=== PATIENT | female | born 1990 | race Caucasian/White ===

== ENCOUNTER → 2021-03-29 09:19 | Outpatient (CLI) | payer OTHER, SELFPAY ==
--- NOTE | 2021-03-29 09:25 | XR_ITS ---
PROCEDURE: XR KNEE RT 3V CLINICAL INDICATION: RT KNEE PAIN COMPARISON: No exams were available for comparison FINDINGS: No fracture or dislocation. No lytic or blastic change. There is normal mineralization. The joint spaces are well-preserved. No significant degenerative/arthritic changes. No erosive changes evident. Other findings:None. IMPRESSION: No acute findings. Dictated by: Dr. Demar Tyson MD 03/29/2021 10:01 Dr. Demar Tyson MD in [place] 03/29/2021 10:01
== END ==
PROVIDERS: PCP Nurse Practitioner; Visit Provider Nurse Practitioner
DX: M25.569 Pain in unspecified knee (principal)
CPT/HCPCS: 73562

== ENCOUNTER → 2021-04-13 16:06 | Outpatient (CLI) | payer OTHER, SELFPAY ==
--- NOTE | 2021-04-13 16:13 | MR_ITS ---
PROCEDURE INFORMATION: Exam: MR Right Lower Extremity Joint Without Contrast, Knee Exam date and time: 04/13/2021 4:13 PM Age: 30 years old Clinical indication: Pain; Knee; Right; Additional info: Pain in unspecified knee. PT fell [id number] ago and has had knee pain since. Prior x-ray 03-29-21 TECHNIQUE: Imaging protocol: MR of the Right lower extremity joint without contrast. Exam focused on the knee. COMPARISON: CR XR KNEE RT 3V 03/29/2021 9:28 AM FINDINGS: Bones and cartilage: No fracture or suspicious marrow signal. Minimal chondromalacia lateral facet patella. Joint spaces: No joint effusion. Medial meniscus: No internal derangement. Lateral meniscus: Unremarkable. No tear. Anterior cruciate ligament: Unremarkable. No tear. Posterior cruciate ligament: Unremarkable. No tear. Medial capsule and supporting structures: Unremarkable. No tear. Lateral capsule and supporting structures: Unremarkable. No tear. Extensor mechanism of knee: Unremarkable. No tear. Muscles: Unremarkable. Soft tissues: Unremarkable. IMPRESSION: 1. No fracture or suspicious marrow signal. 2. No internal derangement. 3. Minimal chondromalacia lateral facet patella.
== END ==
PROVIDERS: PCP Nurse Practitioner; Visit Provider Nurse Practitioner
DX: M25.561 Pain in right knee (principal)
CPT/HCPCS: 73721

== ENCOUNTER → 2021-09-13 14:03 | Outpatient (CLI) | payer OTHER, SELFPAY ==
[2021-09-13 14:42] LABS: Hemoglobin A1C 5.4 % (4.0-6.0)
[2021-09-13 15:29] LABS: Free Thyroxine Index 2.8 ug/dL (5.93-13.13); T4 (Thyroxine) 8.8 ug/dl (5.53-11.0); Triiodothryronine (T3) Uptake 32 % (23.5-40.5)
[2021-09-13 15:43] LABS: Thyroid Stimulating Hormone 2.17 uIU/mL (0.465-4.68)
[2021-09-13 16:00] LABS: Vitamin B12 385 pg/mL (239-931)
[2021-09-13 23:18] LABS: Iron 29 ug/dL (37-170)
[2021-09-13 23:27] LABS: Total Iron Binding Capacity 335 ug/dL (265-497)
[2021-09-20 19:10] LABS: 1,25 Dihydroxy Vitamin D 56 pg/mL (.); 1,25-Dihydroxy, Vitamin D-2 <10 pg/mL (.); 1,25-Dihydroxy, Vitamin D-3 55 pg/mL (.)
== END ==
PROVIDERS: Visit Provider Nurse Practitioner Psychiatric/Mental Health
DX: Z79.899 Other long term (current) drug therapy (principal)
CPT/HCPCS: 36415; 82607; 82652; 83036; 83540; 83550; 84436; 84443; 84479

== ENCOUNTER → 2022-02-27 12:58 | Outpatient (CLI) | payer OTHER, SELFPAY ==
[2022-02-27 13:24] LABS: Basophils # 0.2 K/mm3 (0-0.2); Basophils % 1.4 % (0.1-2.0); Eosinophils # 0.1 K/mm3 (0.0-0.4); Eosinophils % 1.1 % (0.1-12.0); Hematocrit 40.2 % (37.0-47.0); Hemoglobin 13.4 g/dL (12.2-16.2); Lymphocytes # 2.9 K/mm3 (0.7-4.5); Lymphocytes % 22.4 % (10-50); Mean Corpuscular HGB Conc 33.2 g/dL (31.8-35.4); Mean Corpuscular Volume 90.2 fl (81-99); Mean Platelet Volume 8.7 fl (7.4-10.4); Monocytes # 0.6 K/mm3 (0.1-1.0); Monocytes % 4.4 % (1.7-9.3); Neutrophils # 9.2 K/mm3 (1.8-7.8); Neutrophils % 70.7 % (37.0-80.0); Platelet Count 463 K/mm3 (142-424); Red Blood Count 4.45 M/mm3 (4.20-5.40); White Blood Count 13.1 K/mm3 (4.8-10.8)
[2022-02-27 14:31] LABS: HCG Qualitative, Serum Negative (Negative)
[2022-02-27 14:35] LABS: Anion Gap 12.2 mEq/L (5-15); Blood Urea Nitrogen 12 mg/dl (7-17); Calcium 9.3 mg/dl (8.4-10.2); Carbon Dioxide 28 mmol/L (22.0-30.0); Chloride 103 mmol/L (98-107); Estimated Glomerular Filt Rate 98 ml/min (>60); GFR (African American) 119 ML/MIN (>60); Glucose 92 mg/dl (74-100); Potassium 4.2 mmoL/L (3.5-5.1); Sodium 139 mmol/L (136-145)
== END ==
PROVIDERS: Visit Provider Surgery
DX: Z01.812 Encounter for preprocedural laboratory examination (principal); Z20.822 Contact with and (suspected) exposure to COVID-19; L72.9 Follicular cyst of the skin and subcutaneous tissue, unspecified
CPT/HCPCS: 36415; 80048; 84703; 85025; C9803; U0003; U0005

== ENCOUNTER 2022-03-01 10:32 | Day surgery (SDC) | payer OTHER, SELFPAY ==
[2022-03-01] VITALS (9 sets, daily range): BP systolic 109–147; BP diastolic 64–89; PULSE 73–88; RESP 14–18; TEMP 36.1–36.7; O2SAT 93–98; BMI 50.1
--- NOTE | 2022-03-01 11:29 | P.PN_ITS ---
[facility] Anesthesia Checklist - Patient Identification Patient Identification: Arm Band, Verbal (Name & ) - Structural Data Admitted From: Home Planned Operative Procedure/s: Excision of scalp lesions Consent for Planned Operative Procedure(s) Verified: Yes Verified Documents: Surgical Consent - NPO Status Verified Time NPO: 00:00 - Additional verifications Anesthesia Reactions: No Hx Blood Transfusions: No Blood Transfusion Reaction: No - Airway Assessment C-Spine Mobility Assessed: Yes TMJ Mobility Assessed: Yes Dentition: Poor Dentition - Neurological Assessment Level of Consciousness: Awake, Alert, Appropriate - Anesthesia Plan Anesthesia Risk discussed: Yes ASA Class: II Anesthesia Type: General [facility] History I have reviewed the patient's past medical history: Yes Medical History: Denies:: Cancer, Diabetes Mellitus Type 1, Diabetes Mellitus Type 2, Internal Pacemaker, MRSA, Seizures *Have you ever received a pneumonia vaccine?: No *Have you received a flu vaccine this season?: No Other Medical History: Denies: Blood Transfusion Reaction Anesthesia experience/problems:: none Other Surgeries: No: Pacemaker Amputation: No Fractures: No - *Social History Last grade of school completed: GED Smoking Status: Never smoker Alcohol Intake: never Alcohol Intake Frequency:: 0-2 drinks per day Substance Use Type: denies use *Occupational Status:: employed Housing: house Household Members: spouse *Travel in the last 8 weeks: None Family Hx:: Diabetes, Hypertension
--- NOTE | 2022-03-01 11:53 | HMH.OPNOTE ---
Date of procedure: 03/01/22 Pre-op Diagnosis:: Left scalp cysts (4 cysts ranging between 1 and 2 cm) Post-op Diagnosis:: Same Procedure performed:: Excision of left scalp cysts (x4; size range between 1 and 2 cm) Surgeon:: Ankit Limon MD Anesthesia: LMA Estimated blood loss (mL): 10 Operative findings:: All 4 cysts excised in toto Operative note:: After informed consent was obtained the patient was taken to the operating room and placed in the supine position. General anesthesia with laryngeal mask airway was achieved. Her left scalp was prepped and draped in a sterile fashion. After infiltration local anesthetic electrocautery was utilized to incise over the central portion of all 4 cysts each cyst was then carefully from surrounding tissue bluntly as it was elevated. Each cyst was excised in toto and passed off for pathologic evaluation. Pressure dressings were applied and the patient was transferred to recovery in stable condition. Condition: stable Disposition: PACU Specimens:: Left scalp cysts Complications:: No immediate
--- NOTE | 2022-03-01 12:06 | P.PN_ITS ---
[facility] Anesthesia Record Part I Intake, IV Amount: 300 Estimated blood loss (mL): 1 Urine output (mL): 0 Blood Products used (#): none Blood Pressure: 111/64 SaO2: 93 Pulse Rate: 88 Respiratory Rate: 14 Temperature: 98 F Patient is:: Drowsy Stable to PACU at:: 12:04
--- NOTE | 2022-03-01 13:13 | PC.NURSE ---
1230-detailed report called DEMI Lee 1234-pt transported to post op via stretcher w/agustin rails up and left in care of DEMI Lee with bed locked in lowest position, vss, pt stable, dressing changed via DEMI Will and DEMI Lee upon arrival to post op-4x4's and noreen applied
[2022-03-02 10:57] VITALS: BP 118/70; PULSE 74; TEMP 36.3
--- NOTE | 2022-03-02 10:57 | HMH.ANESII ---
[facility] Anesthesia Record Part II Discharge Time: 12:34 Destination: Surgical Day Care (OP Surgery) PACU nurse assessment reviewed?: Yes Patient Condition:: Good Anesthesia Complications:: None Swallowing reflex intact?: Yes Cyanosis?: No Blood Pressure: 118/70 Pulse Rate: 74 Temperature: 97.4 F Mental Status: Alert & Oriented Pain level:: 3 Nausea and/or vomitting:: None Intake, IV Amount: 0
== END 2022-03-01 13:10 | disposition home or self-care (01) ==
LOC: OR 10:36
PROVIDERS: PCP Nurse Practitioner; Visit Provider Surgery
PROC: (CPT 11422; principal; 2022-03-01 12:15)
DX: L72.9 Follicular cyst of the skin and subcutaneous tissue, unspecified (principal)
CPT/HCPCS: 11422 ×4; J2405

== ENCOUNTER 2022-05-28 16:29 | Emergency (ER) | payer OTHER, SELFPAY ==
--- NOTE | 2022-05-28 17:22 | PC.NURSE ---
PT placed in triage for assessment. Pt stable with stable VSS at this time. Bp 127/88, temp 98.9 oral, hr 81, oxygen 97 ra. pt is aware no beds are available at this time but once one opens she will be called back. Verbalized understanding
[2022-05-28 20:06] VITALS: BP 120/82; PULSE 85; RESP 16; TEMP 36.8; O2SAT 98; BMI 50.6
[2022-05-28 21:00] VITALS: BP 130/75; PULSE 80; RESP 18; TEMP 36.6; O2SAT 98
== END 2022-05-28 21:10 | disposition left against medical advice (07) ==
LOC: ER 20:47
PROVIDERS: Emergency Provider Emergency Medicine; PCP Nurse Practitioner
DX: Z53.21 Procedure and treatment not carried out due to patient leaving prior to being seen by health care provider (principal)

== ENCOUNTER 2022-05-29 09:36 | Emergency (ER) | payer OTHER, SELFPAY ==
[2022-05-29 09:36] VITALS: BP 126/92; PULSE 97; RESP 18; TEMP 36.6; O2SAT 100; BMI 50.6
--- NOTE | 2022-05-29 10:03 | HMH.EDDENT ---
ED Disposition Clinical Impression: Dental caries, Dental abscess Disposition: Home, Self-Care Condition on Discharge: Good Instructions: Tooth Abscess Additional Instructions: Follow-up with your oral surgeon tomorrow as scheduled Prescriptions: Amoxicillin/Potassium Clav [Augmentin 500mg tab] 1 tab PO BID 3 Days #6 tab Transmission Status: Received by [id number] Oxycodone HCl/Acetaminophen [Oxycodone-Acetaminophen 5-325] 1 each PO Q6 PRN #5 tab PRN Reason: Moderate To Severe Pain Transmission Status: Received by [id number] Referrals: Elyse Lovell APRN [Primary Care Provider] - - Critical Care Critical Care Time: No Attestation: On 05/29/22, the high probability of a clinically significant, sudden or life threatening deterioration of the following system(s) required my full and direct attention, intervention and personal management. The time I documented below is in addition to time spent performing reported procedures but includes the following listed in this critical care notation. Medical Decision Making - Medical Records Medical records reviewed: Yes: I reviewed the patient's medical records. - Lui Inquiry Pt receiving controlled substance: Yes Lui was queried for this patient: Yes Risks and benefits of using a controlled substance: were discussed with pt by me Vital Signs: 05/29/22 09:36 05/29/22 10:32 Temperature 97.9 F 98 F Temperature Source Oral Oral Pulse Rate 78 Pulse Rate [Left Radial] 97 H Respiratory Rate 18 16 Blood Pressure 126/74 Blood Pressure [Right Arm] 126/92 H Blood Pressure Mean [Right Arm] 103 Blood Pressure Source [Right Arm] Automatic Cuff Blood Pressure Position Sitting Blood Pressure Position [Right Arm] Sitting 02 Sat by Pulse Oximetry 100 Oxygen Delivery Method Room Air Room Air Orders (Tests/Meds): ED MEDICATIONS Discontinued Medications Generic Name Dose Route Start Last Admin Trade Name Freq PRN Reason Stop Dose Admin Ibuprofen 800 mg 05/29/22 10:11 05/29/22 10:28 Ibuprofen 400 Mg Tablet PO 05/29/22 10:12 800 mg ONCE ONE Administration Dental HPI - General Chief complaint: Dental/Oral Stated complaint: LT side mouth pain Time Seen by Provider: 05/29/22 09:45 Mode of Arrival: Ambulatory Limitations: No Limitations Description of Symptoms (Recalled from ER Triage Doc. by RN): c/o left face swelling and pain due to 2 infected teeth for 3 days - History of Present Illness HPI Narrative: Presents with a 3-day history of tooth ache. She describes symptoms as moderate to severe and relieved with ibuprofen she denies fever she does note some left-sided facial swelling. She has an appointment tomorrow with an oral surgeon for definitive dental extraction. Is on antibiotics 2-weeks ago for the same problem. - Related Data Home Medications Medication Instructions Recorded Confirmed lamotrigine 25 mg tablet 125 mg PO DAILY tab 04/04/22 05/28/22 Previous Rx's Medication Instructions Recorded Amoxicillin/Potassium Clav 1 tab PO BID 3 Days #6 tab 05/29/22 [Augmentin 500mg tab] Oxycodone HCl/Acetaminophen 1 each PO Q6 PRN #5 tab 05/29/22 [Oxycodone-Acetaminophen 5-325] Allergies Allergy/AdvReac Type Severity Reaction Status Date / Time No Known Allergies Allergy Verified 04/04/22 10:53 [facility] History - Hepatitis A Screen Attestation statement:: This patient has been screened for Hepatitis A risk factors. Medical History: Denies:: Cancer, Diabetes Mellitus Type 1, Diabetes Mellitus Type 2, Internal Pacemaker, MRSA, Seizures Other Medical History: Denies: Blood Transfusion Reaction Other Surgeries: Yes: Other. No: Pacemaker Amputation: No Fractures: No - Social History Smoking Status: Never smoker Alcohol Intake: never Alcohol Intake Frequency:: 0-2 drinks per day Substance Use Type: denies use Occupational Status: employed Housing: [facility]
[2022-05-29 10:32] VITALS: BP 126/74; PULSE 78; RESP 16; TEMP 36.6; O2SAT 98
== END 2022-05-29 10:33 | disposition home or self-care (01) ==
PROVIDERS: Emergency Provider Emergency Medicine; PCP Nurse Practitioner
DX: K02.9 Dental caries, unspecified (principal); K04.7 Periapical abscess without sinus
CPT/HCPCS: 99283

== ENCOUNTER → 2022-07-06 10:01 | Outpatient (CLI) | payer OTHER, SELFPAY ==
--- NOTE | 2022-07-06 10:11 | XR_ITS ---
FINAL REPORT CLINICAL HISTORY: HEEL PAIN X 4 WKS FINDINGS: LEFT FOOT Three views of the left foot demonstrate no acute fracture or dislocation. The visualized joint spaces are normally aligned. The joint spaces are preserved. There is minimal calcaneal spurring. The soft tissues are unremarkable. IMPRESSION: No acute bony abnormality. Reviewed, Interpreted and Dictated by Ivy Earl MD Transcribed by Jimena Jimenez Authenticated and [facility]
== END ==
PROVIDERS: PCP Nurse Practitioner; Visit Provider Nurse Practitioner
DX: M79.672 Pain in left foot (principal)
CPT/HCPCS: 73630

== ENCOUNTER 2022-09-27 16:17 | Emergency (ER) | payer OTHER, SELFPAY ==
--- NOTE | 2022-09-27 16:26 | XR_ITS ---
PROCEDURE INFORMATION: Exam: XR Left Hand Exam date and time: 09/27/2022 4:23 PM Age: 32 years old Clinical indication: Pain; Hand; Left; Additional info: Fall left hand pinky finger pain TECHNIQUE: Imaging protocol: Radiologic exam of the Left hand. Views: 3 or more views. COMPARISON: No relevant prior studies available. FINDINGS: Bones/joints: Fracture of the proximal phalanx of the 5th finger which appears to extend to the metacarpal phalangeal joint. There is no evidence of joint malalignment or dislocation. Soft tissues: Soft tissue swelling of the 5th finger. IMPRESSION: 1. Fracture of the proximal phalanx of the 5th finger which appears to extend to the metacarpal phalangeal joint. 2. Soft tissue swelling of the 5th finger. 3. No evidence of acute dislocation.
[2022-09-27 16:33] VITALS: BP 129/97; PULSE 106; RESP 18; TEMP 37.5; O2SAT 98; BMI 50.1
--- NOTE | 2022-09-27 16:39 | EXP.UTC ---
Discharge Plan Disposition Patient Disposition: Home, Self-Care Condition: Good Prescriptions Prescriptions: New ibuprofen [IBU] 800 mg tablet 800 mg PO Q8HP PRN (Reason: Moderate Pain) Qty: 30 0RF No Action lamotrigine 25 mg tablet 125 mg PO DAILY Label Comments: TAKE 1 TABLET BY MOUTH ONCE DAILY FOR 14 DAYS , THEN INCREASE TO 2 TABLETS ONCE DAILY THEREAFTER oxycodone-acetaminophen 1 EACH tablet 1 each PO Q6 PRN (Reason: Moderate To Severe Pain) Qty: 5 0RF amoxicillin-pot clavulanate 1 EACH tablet 1 tab PO BID 3 Days Qty: 6 0RF Referrals Follow up/Referrals: Cameron Farias DO [Staff Physician] - See instructions Elyse Lovell APRN [Primary Care Provider] - See instructions Activity Restrictions/Add. Instructions Additional Instructions/Restrictions: Rest the extremity, apply ice for 15 minutes as tolerated three or four times per day, Elevate the extremity as tolerated while you are resting. Take ibuprofen for pain. I sent in a prescription to your pharmacy. Follow up with Dr. Farias (orthopedics). I put in a referral but you need to call his office and schedule an appointment. Follow up with your regular doctor. GO TO THE ER FOR ANY WORSENING SYMPTOMS Clinical Impressions Clinical Impression: Finger fracture, left Qualifiers: Encounter type: initial encounter Finger: little finger Fracture type: closed Phalanx: proximal Fracture alignment: nondisplaced Qualified Code(s): S62.647A - Nondisplaced fracture of proximal phalanx of left little finger, initial encounter for closed fracture Instructions Patient Instructions: Finger Fracture, DI for Finger Fracture Discharge ED Provider: Ke Branch [facility] General Stated complaint: AO 09/27 fell on left hand Time Seen by Provider: 09/27/22 16:39 History of Present Illness Provider Complaint: She states that earlier today she fell and came down on her left hand. She has had pain and swelling of the area around the base of her 5th finger since then. She denies any other injury. Related Data Home Medications Medication Instructions Recorded Confirmed lamotrigine 25 mg tablet 125 mg PO DAILY . 04/04/22 05/28/22 Previous Rx's Medication Instructions Recorded amoxicillin 500 mg-potassium 1 tab PO BID 3 days #6 tabs 05/29/22 clavulanate 125 mg tablet oxycodone-acetaminophen 5 mg-325 1 each PO Q6 PRN Moderate To 05/29/22 mg tablet Severe Pain #5 tabs ibuprofen 800 mg tablet (IBU) 800 mg PO Q8HP PRN Moderate Pain 09/27/22 #30 tabs Allergies Allergy/AdvReac Type Severity Reaction Status Date / Time No Known Allergies Allergy Verified 09/27/22 16:45 [facility] Disclaimer: The information contained in this section may have been updated after the patient was seen, as this information can be updated by other users. Social History Smoking Status: Never smoker alcohol intake: never substance use type: denies use current occupational status: employed Travel in the last 8 weeks: None household members: spouse housing: house number of children: 1 current occupation: [employer] current occupational exposures/hazards: Yes caffeine: Yes ROS Obtained: Yes All systems reviewed & no additional complaints except as documented Constitutional Constitutional: Denies chills and Denies fever(s) Integumentary/Breasts Skin/Breast: Denies redness, Denies rash and Denies wounds Neurologic Neurologic: Denies paresthesias Physical Exam General General appearance: alert and in no apparent distress Head Head exam: atraumatic, normocephalic and normal inspection Eye Eye exam: Present normal appearance, PERRL and EOMI ENT ENT exam: Present normal exam, normal oropharynx, mucous membranes moist, TM's normal bilaterally and normal external ear exam Neck Neck exam: Present normal inspection, full ROM and trachea midline; Absent meningismus or
[2022-09-27 18:04] VITALS: BP 129/97; PULSE 106; RESP 18; TEMP 37.5
== END 2022-09-27 18:07 | disposition home or self-care (01) ==
PROVIDERS: Emergency Provider Nurse Practitioner Family; PCP Nurse Practitioner
DX: S62.647A Nondisplaced fracture of proximal phalanx of left little finger, initial encounter for closed fracture (principal); W19.XXXA Unspecified fall, initial encounter
CPT/HCPCS: 73130; 99212; G0463